=== PATIENT | male | born 1980 | race Caucasian/White ===

== ENCOUNTER 2024-11-28 18:57 | Emergency (ER) | payer OTHER, SELFPAY ==
[2024-11-28 18:59] VITALS: BP 146/91
[2024-11-28 19:28] LABS: Urine Character Clear (Clear)
[2024-11-28 19:34] VITALS: BP 129/86
[2024-11-28 19:35] LABS: Urine Squamous Cell 0-2 /LPF (Few); Urine White Cell 0-2 /HPF (0-5)
[2024-11-28 19:36] VITALS: BMI 23.1
[2024-11-28] MEDS: OMNIPAQUE 50 ML PO (20:28)
[2024-11-28] MEDS: ZOFRAN 4 MG IV (20:44)
--- NOTE | 2024-11-28 20:45 | ED.GENMED ---
History of Present Illness
General
Chief Complaint: Abdominal Pain
Source: patient
Exam Limitations: none
Time Seen by Provider: 11/28/24 20:07
Nursing documentation reviewed up to this point in time: agreed with
History of Present Illness
History of Present Illness:
44-year-old male with no reported chronic medical issues, no significant surgical history presents to the ER for evaluation of abdominal pain and nausea. Patient reports onset of symptoms last night and have been constant since that time. He
reports pain in the right lower abdomen. Somewhat worse when he lays flat, no other triggering or relieving factors noted. He reports associated nausea and vomiting today. He denies any diarrhea or constipation. Denies any testicular pain or
swelling. He denies any dysuria, hematuria, change in urinary frequency. He denies having had similar symptoms in the past. He was initially seen in urgent care and referred to the ER for assessment.
Past History
Past History
ED Past Medical History: None
ED Past Surgical History: None
Social History
Tobacco: Former smoker
Alcohol: Occasional
Drug: None
Personal:
Living: with family
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
Review of Systems
Review of Systems
All Other Systems: ROS reviewed and negative except as documented in HPI and ROS
Constitutional: Denies fever or chills
Respiratory: Denies trouble breathing
Cardiac: Denies chest pain
ABD/GI: Reports abdominal pain, nausea and vomiting; Denies diarrhea or constipated
: Denies dysuria, frequency, flank pain or bleeding
Musculoskeletal: Denies neck pain or back pain
Neurological: Denies dizzy or headache
Phy Exam
Physical Exam
Physical Exam:
General: Awake, alert, oriented x3; no acute distress
Head: Normocephalic, atraumatic
Eyes: Conjunctiva normal, sclera anicteric
Throat: Airway intact, handling secretions
Neck: Trachea midline, supple without meningismus
Lungs: Breathing comfortably without any distress
Heart: Regular rate
Abd: Soft, non distended, moderately tender right lower quadrant
: No scrotal swelling, no testicular tenderness
Back: No CVA tenderness
Neuro: No gross deficits
Skin: No rash in area of concern
Extremities: Warm and well-perfused with no notable edema
Scores
Heart Failure Risk
Heart Failure Risk Score: Not Applicable
Heart Score for Chest Pain Patients
STEMI patient?: Not applicable
Withdrawal Assessment of Alcohol
Withdrawal Assessment Completed?: Not applicable
Course
Orders/Labs/Results
Orders:
Orders
11/28/24 19:08
Urine Microscopic Reflex Cult Urgent
Urine Reflex Culture from UA [Urinalysis Reflex To Culture] Urgent
Date Specimen was Collected: 11/28/24
Time Specimen was Collected: 19:05
11/28/24 20:18
CT Abd/pel W Iv And Oral Contr Urgent
Comment:
Reason For Exam: RLQ abd pain
Iohexol [Omnipaque] See Protocol PO NOW STA
11/28/24 20:19
Complete Blood Count/With Diff Urgent
ESR [Erythrocyte Sed Rate] Urgent
11/28/24 20:39
Ondansetron Injectable [Zofran] 4 mg IV NOW STA
11/28/24 20:48
Add On- LAB Urgent
Tests Added?: lipase
11/28/24 20:51
C-Reactive Protein Urgent
Comprehensive Metabolic Panel Urgent
Lipase Urgent
Comment: ADD ON
Abnormal Lab Results
11/28/24 11/28/24 11/28/24
19:08 20:19 20:51
RBC 4.32 L 10^6/uL
(4.70-6.10)
Hct 38.9 L %
(39.0-52.0)
MCH 31.7 H pg
(27.0-31.0)
Plt Count 417 H 10^3/uL
(130-400)
Absolute Lymphs (auto) 4.8 H 10^3/uL
(1.2-3.4)
Absolute Monos (auto) 0.9 H 10^3/uL
(0.1-0.6)
Neutrophils % 40.5 L %
(42.2-75.2)
Chloride 109 H mmol/L
(98-107)
Ur Occult Blood Reflex 1+ A
(Negative)
Urine RBC 3-6 A /HPF
(0-2)
11/28/24 20:19
11/28/24 20:51
Vital Signs
Initial and Last Documented VS:
Initial Vital Signs
Temp Pulse Resp BP Pulse Ox
36.6 C 62 20 146/91 100
11/28/24 18:59 11/28/24 18:59 11/28/24 18:59 11/28/24 18:59 11/28/24 18:59
Last Documented Vital Signs
Temp Pulse Resp BP Pulse Ox
36.6 C 62 20 129/86 100
11/28/24 18:59 11/28/24 18:59 11/28/24 18:59 11/28/24 19:34 11/28/24 20:48
MDM/Problems Addressed
Differential Diagnosis Includes:
Appendicitis, nephrolithiasis, UTI, diverticulitis, cholelithiasis, cholecystitis, muscular strain
MDM/Problems Addressed:
44-year-old male presents for evaluation of right lower quadrant abdominal pain as described above. Vitals and exam as above. Plan to place an IV check labs including CBC and a CMP, lipase. Check urinalysis. Check CT of the abdomen pelvis.
Treat symptomatically. Reassess after the above.
Labs reviewed: CBC and CMP showed no clinically significant abnormalities. ESR and CRP are not elevated. Urinalysis negative for infection. CT shows no signs of nephrolithiasis, normal-appearing appendix. He does have some mild inflammation of
the terminal ileum consistent with ileal. Suspect likely viral, although inflammatory bowel a consideration he has not had history of this and has no bloody diarrhea. Will discharge with supportive care�Zofran as needed encourage p.o. fluids and
bland diet. Follow-up with primary care physician as an outpatient appropriate�patient says he does not have an established primary doctor and so I put his information in for our primary care referral line. Patient comfortable with this plan. All
questions answered.
*Radiology
Radiology exam reviewed: radiology read reviewed
*Pulse Oximetry
SaO2: 100
Oxygen Mode of Delivery: Room air
Patient hypoxic: no (100%)
*Critical Care Note
Total Time (30-74mins, 75-104mins- exclusive of procedures): Not Applicable
Data Reviewed
Source: patient
ED Attending Note
-
Portions of this chart may have been created with voice recognition software.� Occasional wrong word or��sound alike� substitutions may have occurred due to the inherent limitations of voice recognition software.
Discharge Plan
Departure
Patient Disposition: Home (Routine Discharge)
Date of Disposition: 11/28/24
Time of Disposition: 22:51
Patient with high blood pressure during this ER visit?: Yes
Discharge Problem:
Ileitis
Instructions: Nausea and vomiting in adults
Prescriptions:
New
ondansetron 4 mg tablet,disintegrating
4 mg PO TIDPRN PRN (Reason: nausea/vomiting) Qty: 14 0RF
No Action
fluticasone propionate 1 SPRAY spray,suspension
1 spray intranasal BID
Activity Restrictions/Additional Instructions:
Thank you for visiting the Emergency Department at [facility].
1. Please schedule a follow up appointment as directed. Call first thing tomorrow morning to make an appointment.
2. If indicated, please take your medications as instructed and indicated on discharge paperwork.
3. If any of your symptoms do not improve, or persist, or become more severe within 6-12 hours, please return to the emergency department for further care.
4. Please return to the emergency department if you develop a headache, neck pain/stiffness, fever greater than 100.4F, chest pain, shortness of breath, persistent nausea, vomiting, slurred speech, difficulty walking, numbness/tingling, weakness,
signs of infection or any other symptoms that are worrisome to you.
Please call [phone] if you have any questions.
Interventions
Interventions:
*Risk Screen - Suicide Last Done: 11/28/24 18:59
*General Assessment Last Done: 11/28/24 18:59
*Neglect/Abuse Screening Last Done: 11/28/24 18:59
*ED COVID-19 Vaccine History Last Done: 11/28/24 18:59
AW-Oohdgt-Ismbacyitq Assessment Last Done: 11/28/24 19:37
Discharge Date and Time
Print Language: ARGENTINE
[2024-11-28 20:48] LABS: Hematocrit 38.9 % (39.0-52.0); Hemoglobin 13.7 g/dL (13.0-18.0); Mean Corp Hgb Conc. 35.2 g/dL (33.0-37.0); Mean Corpuscular Volume 90.0 fL (80.0-94.0); Platelet Count 417 10^3/uL (130-400); Red Cell Dist. Width 13.6 % (11.5-14.5)
[2024-11-28 20:55] LABS: Nucleated Red Blood Cells % 0 % (-)
[2024-11-28 21:21] LABS: ALT (SGPT) 24 U/L (0-50); AST (SGOT) 20 U/L (17-59); Albumin 4.4 g/dl (3.5-5.0); Alkaline Phosphatase 59 U/L (38-126); Blood Urea Nitrogen 9 mg/dl (9-20); Calcium 9.8 mg/dl (8.4-10.2); Carbon Dioxide 24 mmol/L (22-30); Chloride 109 mmol/L (98-107); Estimated Creatinine Clearance 112 ml/min; Glucose 88 mg/dl (70-99); Lipase 49 U/L (23-300); Potassium 4.5 mmol/L (3.5-5.1); Sodium 139 mmol/L (135-145); Total Protein 6.9 g/dl (6.3-8.2); eGFR > 60.00
[2024-11-28 21:24] LABS: C-Reactive Protein 5.00 mg/L (0.0-10.00)
[2024-11-28 22:57] VITALS: BP 123/78
== END 2024-11-28 23:01 | disposition home or self-care (01) ==
LOC: EMR 18:57
PROVIDERS: Emergency Medicine; EMERGENCY PHYSICIAN Emergency Medicine
DX: K52.9 Noninfective gastroenteritis and colitis, unspecified (principal); R03.0 Elevated blood-pressure reading, without diagnosis of hypertension; Z87.891 Personal history of nicotine dependence
CPT/HCPCS: 99284; 96374; 74177; 80053; 81003; 81015; 83690; 85025; 85652; 86140; Q9967

== ENCOUNTER 2024-12-02 09:29 | Emergency (ER) | payer OTHER, SELFPAY ==
[2024-12-02 09:30] VITALS: BP 130/83
--- NOTE | 2024-12-02 10:13 | ED.GENMED ---
History of Present Illness
General
Chief Complaint: Abnormal Lab Value
Source: patient
Exam Limitations: none
Time Seen by Provider: 12/02/24 10:02
History of Present Illness
History of Present Illness:
44-year-old male presented 4 days ago with abdominal pain. Diagnosed with ileitis. Stable labs at that time. Symptoms have improved moderately. He stated on Wednesday the pain was a 7 out of 10. Now 3. No fever or chills. No change in bowels.
No other complaints. Patient had outpatient labs yesterday through his primary physician that apparently showed a leukocytosis. Patient was sent back for further evaluation.
Past History
Past History
ED Past Medical History: None
ED Past Surgical History: Orthopedic
Social History
Tobacco: Former smoker
Alcohol: Occasional
Drug: None
Personal:
Living: with family
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
Phy Exam
Physical Exam
Physical Exam:
GENERAL: Alert and oriented in no apparent distress
EYE: Orbits normal.
NECK: Supple
CARDIAC: Regular rate and rhythm without any obvious murmurs.
LUNGS: Clear breath sounds,normal
ABDOMEN: Soft, without focal tenderness or distention
NEUROLOGICAL: Alert and oriented , grossly non-focal
SKIN: Warm and dry, no rash or lesion, no discoloration, skin intact.
MUSCULOSKELETAL: No edema,no deformity.Good color
PSYCH: Normal and appropriate interaction.
Course
Orders/Labs/Results
Orders:
Orders
12/02/24 10:08
IV Insert/Care/Rem.- Treatment PRN
12/02/24 10:16
Complete Blood Count/With Diff Urgent
Urinalysis Reflex To Culture Urgent
Date Specimen was Collected: 12/02/24
Time Specimen was Collected: 10:09
12/02/24 10:52
CT Abd/pel W Iv And Oral Contr Urgent
Comment:
Reason For Exam: Leukocytosis/ongoing abdominal pain
0.9% Sodium Chloride 500 ml [Nss] 500 ml IV BOLUS
Iohexol [Omnipaque] See Protocol PO NOW STA
12/02/24 11:09
Comprehensive Metabolic Panel Urgent
Lipase Urgent
12/02/24 11:10
Ondansetron Injectable [Zofran] 4 mg .ROUTE .STK-MED ONE
Ondansetron Injectable [Zofran] 4 mg IV NOW STA
Abnormal Lab Results
12/02/24 12/02/24
10:16 11:09
WBC 17.0 H 10^3/uL
(4.8-10.8)
MCH 31.8 H pg
(27.0-31.0)
Plt Count 455 H 10^3/uL
(130-400)
Abs Immat Gran (auto) 0.1 H 10^3/uL
(0-0.05)
Absolute Neuts (auto) 11.4 H 10^3/uL
(1.4-6.5)
Absolute Lymphs (auto) 3.9 H 10^3/uL
(1.2-3.4)
Absolute Monos (auto) 1.2 H 10^3/uL
(0.1-0.6)
Calcium 10.5 H mg/dl
(8.4-10.2)
12/02/24 10:16
12/02/24 11:09
Vital Signs
Initial and Last Documented VS:
Initial Vital Signs
Temp Pulse Resp BP Pulse Ox
98.0 F 91 18 130/83 99
12/02/24 09:30 12/02/24 09:30 12/02/24 09:30 12/02/24 09:30 12/02/24 09:30
Last Documented Vital Signs
Temp Pulse Resp BP Pulse Ox
98.0 F 81 18 114/83 98
12/02/24 09:30 12/02/24 11:17 12/02/24 11:17 12/02/24 11:17 12/02/24 11:17
MDM/Problems Addressed
Differential Diagnosis Includes:
44-year-old male returns with abnormal labs via his primary physician. Patient is clinically stable and nontoxic. Symptoms have improved clinically. He actually has no focal tenderness at this time. No fever. We will reevaluate blood work which
will help risk stratify for further radiologic testing
*Radiology
Radiology exam reviewed: radiology read reviewed (20 no acute findings. Stable bladder wall thickening.)
*Pulse Oximetry
SaO2: 99
Oxygen Mode of Delivery: Room air
Patient hypoxic: no
Comment: 99
*Critical Care Note
Total Time (30-74mins, 75-104mins- exclusive of procedures): Not Applicable
Data Reviewed
Review of Other/Old Records Reveals: Labs, Records, Radiology Studies and Testing
Update Note
Update Note:
Patient is medically stable and nontoxic. Nonspecific leukocytosis that may be residual from his ileitis. The symptoms are improving. Patient is aware of the bladder outlet thickening and enlarged prostate. He should follow this up for
completeness although I feel this has nothing to do with his acute symptoms. Stable for discharge to follow-up
ED Attending Note
-
Portions of this chart may have been created with voice recognition software.� Occasional wrong word or��sound alike� substitutions may have occurred due to the inherent limitations of voice recognition software.
Discharge Plan
Departure
Patient Disposition: Home (Routine Discharge)
Date of Disposition: 12/02/24
Time of Disposition: 14:23
Patient with high blood pressure during this ER visit?: Yes
Discharge Problem:
Recent ileitis, Leukocytosis, Prostatic hypertrophy/bladder wall thick
Instructions: Abdominal pain in adults (DC), BLOOD PRESSURE
Prescriptions:
No Action
fluticasone propionate 1 SPRAY spray,suspension
1 spray intranasal BID
ondansetron 4 mg tablet,disintegrating
4 mg PO TIDPRN PRN (Reason: nausea/vomiting) Qty: 14 0RF
Referrals:
Peyman Grimes [Family Provider] - Follow up in 2-3 days
Toy Briones Jr., MD [Active, Urology] - Next open appointment
Activity Restrictions/Additional Instructions:
Return immediately with increased pain fever or any other worsening infectious symptoms
For completeness repeat your blood count this week.
Recommend follow-up with urology listed above for enlarged prostate and bladder wall thickening
Interventions
Interventions:
*Risk Screen - Suicide Last Done: 12/02/24 09:30
*General Assessment Last Done: 12/02/24 09:30
*Neglect/Abuse Screening Last Done: 12/02/24 09:30
*ED- Fall Risk Assessment Last Done: 12/02/24 12:30
Discharge Date and Time
Print Language: TELUGU
[2024-12-02 10:23] LABS: Hematocrit 44.4 % (39.0-52.0); Hemoglobin 15.6 g/dL (13.0-18.0); Mean Corp Hgb Conc. 35.1 g/dL (33.0-37.0); Mean Corpuscular Volume 90.6 fL (80.0-94.0); Nucleated Red Blood Cells % 0 % (-); Platelet Count 455 10^3/uL (130-400); Red Cell Dist. Width 13.8 % (11.5-14.5)
[2024-12-02 10:39] LABS: Urine Character Clear (Clear)
[2024-12-02] MEDS: OMNIPAQUE 50 ML PO (10:57)
[2024-12-02] MEDS: NSS 500 IV (10:58)
[2024-12-02] MEDS: ZOFRAN 4 MG IV (11:11)
[2024-12-02 11:17] VITALS: BP 114/83
[2024-12-02 11:47] LABS: ALT (SGPT) 29 U/L (0-50); AST (SGOT) 25 U/L (17-59); Albumin 4.8 g/dl (3.5-5.0); Alkaline Phosphatase 68 U/L (38-126); Blood Urea Nitrogen 18 mg/dl (9-20); Calcium 10.5 mg/dl (8.4-10.2); Carbon Dioxide 25 mmol/L (22-30); Chloride 106 mmol/L (98-107); Glucose 97 mg/dl (70-99); Lipase 45 U/L (23-300); Potassium 4.5 mmol/L (3.5-5.1); Sodium 137 mmol/L (135-145); Total Protein 7.6 g/dl (6.3-8.2); eGFR > 60.00
[2024-12-02 14:22] VITALS: BP 118/88
== END 2024-12-02 14:30 | disposition home or self-care (01) ==
LOC: EMR 09:29
PROVIDERS: EMERGENCY PHYSICIAN Emergency Medicine; FAMILY PHYSICIAN Psychologist
DX: K52.9 Noninfective gastroenteritis and colitis, unspecified (principal); N40.0 Benign prostatic hyperplasia without lower urinary tract symptoms; D72.829 Elevated white blood cell count, unspecified; Z87.891 Personal history of nicotine dependence
CPT/HCPCS: 99284; 96374; 96361; 74177; 80053; 81003; 83690; 85025; Q9967